=== PATIENT | female | born 1960 | race Caucasian/White ===

== ENCOUNTER → 2018-04-04 | Outpatient (CLI) | payer OTHER ==
[~2018-04-04] MED LIST: AMIT100T53 PO; ARIP2TAB9 PO; ASP325 PO; ASPI81TA94 PO; BIS5 PO; BUTA1TAB PO; DESV50TA9 PO; DEXT1CAP3 PO; FAMO10TA89 PO; GEMF600T91 PO; LISI-362 PO; LISI20TA29 PO; LOR5 PO; ONDA4TAB PO; PRE20 PO; SER50 PO; SIMV-42 PO; TRAM100T22 PO; ZOL5 PO
--- NOTE | 2018-04-04 13:17 | RADIOLOGY IMAGING REPORT ---
FACILITY: PATIENT NAME: HARINDER POWER : [id number] MR: [id number] V: [id number] EXAM DATE: [id number] ORDERING PHYSICIAN: SANA PRATT TECHNOLOGIST: Codi Howe PROCEDURE:BILATERAL DIGITAL SCREENING MAMMOGRAM WITH CAD ASSISTED INTERPRETATION & 3D TOMOSYNTHESIS COMPARISON:02/16/17 & priors back to 11/28/2011 INDICATIONS:SCREENING FINDINGS: Breast parenchyma is mostly fatty replaced. There are no mammographic findings concerning for malignancy. There is no significant interval change. DIAGNOSTIC CATEGORY 1--NEGATIVE. RECOMMENDATIONS: ROUTINE MAMMOGRAM AND CLINICAL EVALUATION. IMPRESSION: BIRADS 1: Negative. Dictated by: Danny Pierre on 04/04/2018 at 12:08 Transcribed by: SARAY on 04/04/2018 at 12:59 Approved by: Danny Pierre on 04/04/2018 at 13:16 [facility]
== END ==
LOC: MAMO 00:29
PROVIDERS: ATTEND Family Medicine
DX: Z12.31 Encounter for screening mammogram for malignant neoplasm of breast (principal)
CPT/HCPCS: 77063; 77067

== ENCOUNTER → 2018-06-27 | Outpatient (CLI) | payer OTHER | LOC: US 11:07 | PROVIDERS: ATTEND Family Medicine | DX: R01.1 Cardiac murmur, unspecified (principal) | CPT/HCPCS: 93306 ==

== ENCOUNTER 2019-02-20 18:13 | Emergency (ER) | payer OTHER ==
--- NOTE | 2019-02-20 18:37 | ER Report ---
History and Physical Time Seen By MD: 18:36 HPI/ROS CHIEF COMPLAINT: chest pain HISTORY OF PRESENT ILLNESS: This is a 58 year old female. Having pain localized to a small spot in left upper chest for about a month. Rated a 1 on a 1-10 scale. Worsens with exertion and deep breaths. No change with eating. Having some increased heartburn symptoms during that same time period, unrelieved with TUMs. No fevers or cough. Has history of aortic valve problems, seen by vascular clinic in [place]. No abdominal pain, nausea or vomiting. No injuries or overuse. No rash associated with this. Allergies: Coded Allergies: No Known Allergies (Verified Allergy, Mild, 02/20/19) Home Meds Reported Medications Lisinopril (LISINOPRIL) 20 Mg Tablet, 20 MG PO QDAY, TAB 10/14/14 Dextromethorphan Hbr/Quinidine (NUEDEXTA 20-10 MG CAPSULE) 1 Each Capsule, 1 EACH PO DAILY, CAPSULE 10/14/14 Amitriptyline Hcl (AMITRIPTYLINE HCL) 100 Mg Tablet, 100 MG PO QHS, TAB 10/14/14 Aspirin (ASPIRIN) 81 Mg Tab.chew, 81 MG PO QDAY, TAB.CHEW TAKE 1 TABLET BY MOUTH EVERY DAY 10/14/14 Zolpidem Tartrate (Ambien) 5 Mg Tab, 5 MG PO QHS, 0 Refills 09/12/11 Simvastatin (Zocor) 20 Mg Tablet, 20 MG PO QHS, 0 Refills 09/12/11 Gemfibrozil (Gemfibrozil) 600 Mg Tablet, 600 MG PO, 0 Refills 09/12/11 Reviewed Nurses Notes: Yes Hx Smoking: No Hx Substance Use Disorder: No Hx Alcohol Use: Yes (3-4 BEERS ON FRIDAYS) Constitutional Vital Sign - Last 24 Hours 02/20/19 02/20/19 02/20/19 02/20/19 18:27 18:30 18:45 18:49 Temp 97.8 Pulse 101 95 96 Resp 17 14 12 B/P (MAP) 178/81 (113) 178/81 Pulse Ox 87 88 88 O2 Delivery Room Air 02/20/19 02/20/19 02/20/19 02/20/19 19:00 19:06 19:15 19:30 Pulse 98 98 94 Resp 10 23 12 B/P (MAP) 159/94 (115) Pulse Ox 90 88 89 02/20/19 02/20/19 02/20/19 02/20/19 19:45 20:00 20:30 20:45 Pulse 95 95 90 92 Resp 19 9 24 6 Pulse Ox 88 88 88 89 02/20/19 02/20/19 21:00 21:07 Pulse 95 Resp 26 B/P (MAP) 132/77 (95) Pulse Ox 88 Physical Exam General Appearance: The patient is alert. No acute distress. Eyes: Pupils are equal, round. No pallor, injection or icterus. ENT: Mucous membranes are moist. Normal oral mucosa. Posterior oropharynx is normal. Neck: Supple and non tender. No lymphadenopathy. Respiratory: Lungs are clear to auscultation. Cardiovascular: Regular rate and rhythm. No murmurs, gallops or rubs. Normal capillary refill. No edema. Gastrointestinal: Abdomen is soft and non tender. Nondistended. Neurological: Alert and oriented x3. Skin: Warm and dry. No rashes. Musculoskeletal: Not reproducible with palpation. No tenderness in back or spine. DIFFERENTIAL DIAGNOSIS: After history and physical exam, differential diagnosis was considered for chest pain including but not limited to myocardial ischemia, pericarditis pulmonary embolus, chest wall pain, pleural inflammation and pulmonary infectious causes. Medical Decision Making Data Points Result Diagram: 02/20/19184002/20/19 1841 Laboratory Hematology Test 02/20/19 18:41 Red Blood Count 4.75 M/uL (4.17-5.56) Mean Corpuscular Volume 90.5 fL (80.0-96.0) Mean Corpuscular Hemoglobin 31.2 pg (26.0-33.0) Mean Corpuscular Hemoglobin Concent 34.4 g/dL (32.0-36.0) Red Cell Distribution Width 13.1 % (11.5-14.5) Mean Platelet Volume 7.9 fL (7.2-11.1) Neutrophils (%) (Auto) 49.6 % (39.4-72.5) Lymphocytes (%) (Auto) 41.1 % (17.6-49.6) Monocytes (%) (Auto) 5.0 % (4.1-12.4) Eosinophils (%) (Auto) 3.4 % (0.4-6.7) Basophils (%) (Auto) 0.9 % (0.3-1.4) Nucleated RBC Relative Count (auto) 0.1 /100WBC Neutrophils # (Auto) 3.4 K/uL (2.0-7.4) Lymphocytes # (Auto) 2.8 K/uL (1.3-3.6) Monocytes # (Auto) 0.3 K/uL (0.3-1.0) Eosinophils # (Auto) 0.2 K/uL (0.0-0.5) Basophils # (Auto) 0.1 K/uL (0.0-0.1) Nucleated RBC Absolute Count (auto) 0.01 K/uL D-Dimer Quantitative (PE/DVT) < 0.27 ug/ml (0-0.50) Sodium Level 139 mmol/L (137-145) Potassium Level 3.7 mmol/L (3.5-5.0) Chloride Level 102 mmol/L (98-107) Carbon Dioxide Level 26 mmol/L (22-31) Blood Urea Nitrogen 16 mg/dl (7-18) Creatinine 0.70 mg/dl (0.52-1.04) Glomerular Filtration Rate Calc > 60.0 Random Glucose 103 mg/dl (75-110) Calcium Level 9.6 mg/dl (8.4-10.2) Total Bilirubin 0.4 mg/dl (0.2-1.3) Aspartate Amino Transf (AST/SGOT) 32 U/L (0-35) Alanine Aminotransferase (ALT/SGPT) 43 U/L (0-56) Alkaline Phosphatase 68 U/L (0-126) Troponin I < 0.012 ng/ml B-Type Natriuretic Peptide 12 pg/ml (0-100) Total Protein 8.2 g/dl (6.3-8.2) Albumin 5.1 g/dl (3.5-5.0) Chemistry Test 02/20/19 18:41 White Blood Count 6.8 k/uL (4.5-11.0) Red Blood Count 4.75 M/uL (4.17-5.56) Hemoglobin 14.8 g/dL (12.0-16.0) Hematocrit 43.0 % (34.0-47.0) Mean Corpuscular Volume 90.5 fL (80.0-96.0) Mean Corpuscular Hemoglobin 31.2 pg (26.0-33.0) Mean Corpuscular Hemoglobin Concent 34.4 g/dL (32.0-36.0) Red Cell Distribution Width 13.1 % (11.5-14.5) Platelet Count 242 K/uL (150-450) Mean Platelet Volume 7.9 fL (7.2-11.1) Neutrophils (%) (Auto) 49.6 % (39.4-72.5) Lymphocytes (%) (Auto) 41.1 % (17.6-49.6) Monocytes (%) (Auto) 5.0 % (4.1-12.4) Eosinophils (%) (Auto) 3.4 % (0.4-6.7) Basophils (%) (Auto) 0.9 % (0.3-1.4) Nucleated RBC Relative Count (auto) 0.1 /100WBC Neutrophils # (Auto) 3.4 K/uL (2.0-7.4) Lymphocytes # (Auto) 2.8 K/uL (1.3-3.6) Monocytes # (Auto) 0.3 K/uL (0.3-1.0) Eosinophils # (Auto) 0.2 K/uL (0.0-0.5) Basophils # (Auto) 0.1 K/uL (0.0-0.1) Nucleated RBC Absolute Count (auto) 0.01 K/uL D-Dimer Quantitative (PE/DVT) < 0.27 ug/ml (0-0.50) Glomerular Filtration Rate Calc > 60.0 Calcium Level 9.6 mg/dl (8.4-10.2) Total Bilirubin 0.4 mg/dl (0.2-1.3) Aspartate Amino Transf (AST/SGOT) 32 U/L (0-35) Alanine Aminotransferase (ALT/SGPT) 43 U/L (0-56) Alkaline Phosphatase 68 U/L (0-126) Troponin I < 0.012 ng/ml B-Type Natriuretic Peptide 12 pg/ml (0-100) Total Protein 8.2 g/dl (6.3-8.2) Albumin 5.1 g/dl (3.5-5.0) Coagulation Test 02/20/19 18:41 D-Dimer Quantitative (PE/DVT) < 0.27 ug/ml EKG/Imaging EKG Interpretation 12 lead EKG: Rhythm: Normal sinus rhythm, rate 97 [place]: normal QRS: normal ST segments: normal Imaging EXAMINATION: Chest 2 Views HISTORY: Chest pain. COMPARISON: None. FINDINGS: The lungs are clear. No focal consolidation or pleural fluid. No pneumothorax. Normal cardiomediastinal silhouette, with normal heart size and pulmonary vascularity. No acute osseous findings. Mild thoracolumbar scoliosis with multilevel degenerative changes along the spine. IMPRESSION: No evidence of acute cardiopulmonary disease. Report Dictated By: Qasim Begum MD at 02/20/2019 8:33 PM ED Course/Re-evaluation Clinical Indication for ER IV: IV Access ED Course EKG, imaging, and labs are negative. Reviewed these with the patient. Recomm ended starting Zantac or Pepcid as a trial to see if GI related. Follow-up with PCP recommended to consider further workup. Decision to Disposition Date: Feb 20, 2019 Decision to Disposition Time: 20:59 Depart Departure Latest Vital Signs Vital Signs Date Time Temp Pulse Resp B/P (MAP) Pulse Ox O2 Delivery O2 Flow Rate FiO2 02/20/19 21:07 132/77 (95) 02/20/19 21:00 95 26 88 02/20/19 18:49 97.8 Room Air Impression: Primary Impression: Chest pain Condition: Improved Disposition: HOME OR SELF-CARE Referrals: SANA PRATT MD (PCP) Patient Instructions: Chest Pain (ED) Additional Instructions: We did not find a dangerous cause of chest pain tonight on your evaluation. This could be related to the increase in heartburn you are having. Try taking Zantac or Pepcid twice a day. Follow-up with your primary care provider for further evaluation. Problem Qualifiers Primary Impression: Chest pain Chest pain type: unspecified Qualified Codes: R07.9 - Chest pain, unspecified EMMA BULL MD Feb 20, 2019 18:37
[2019-02-20] MEDS ORDERED: ASPIRIN 81 MG CHEW PO ONE (18:50)
--- NOTE | 2019-02-20 18:54 | EKG ---
FACILITY: [facility] - [place] PATIENT NAME: HARINDER POWER : [id number] MR: [id number] V: [id number] EXAM DATE: ORDERING PHYSICIAN: EMMA BULL TECHNOLOGIST: LIANG Test Reason : CP Blood Pressure : / mmHG Vent. Rate : 097 BPM Atrial Rate : 097 BPM P-R Int : 122 ms QRS Dur : 110 ms QT Int : 382 ms P-R-T Axes : 051 053 051 degrees QTc Int : 485 ms Normal sinus rhythm Normal ECG No previous ECGs available Confirmed by Alok Chacko ([id number]) on 02/20/2019 10:12:08 PM Referred By: Confirmed By:Alok Romano
[2019-02-20 19:01] LABS: PLATELET COUNT, AUTOMATED 242 K/uL (150-450)
--- NOTE | 2019-02-20 20:39 | RADIOLOGY IMAGING REPORT ---
FACILITY: [facility] - [place] PATIENT NAME: Elisa Dodson : 1960 MR: [id number] V: [id number] EXAM DATE: ORDERING PHYSICIAN: EMMA BULL TECHNOLOGIST: Location: [facility] - [place] Patient: Elisa Dodson : 1960 Visit/Account:[id number] Date of Sevice: 02/20/2019 EXAMINATION: Chest 2 Views HISTORY: Chest pain. COMPARISON: None. FINDINGS: The lungs are clear. No focal consolidation or pleural fluid. No pneumothorax. Normal cardiomediastinal silhouette, with normal heart size and pulmonary vascularity. No acute osseous findings. Mild thoracolumbar scoliosis with multilevel degenerative changes along th e spine. IMPRESSION: No evidence of acute cardiopulmonary disease. Report Dictated By: Qasim Begum MD at 02/20/2019 8:33 PM Report E-Signed By: Qasim Begum MD at 02/20/2019 8:35 PM WSN:[id number]
[2019-02-20 21:07] VITALS: BP 132/77
== END 2019-02-20 21:10 | disposition home or self-care (01) ==
LOC: ER 18:37
DX: R07.9 Chest pain, unspecified (principal)
CPT/HCPCS: 71046; 82040; 82247; 82310; 82374; 82435; 82565; 82947; 83880; 84075; 84132; 84155; 84295; 84450; 84460; 84484; 84520; 85025; 85379; 93005; 99284

== ENCOUNTER → 2019-07-05 | Outpatient (CLI) | payer OTHER ==
--- NOTE | 2019-07-05 16:32 | RADIOLOGY IMAGING REPORT ---
FACILITY: [facility] - [place] PATIENT NAME: HARINDER POWER : [id number] MR: [id number] V: [id number] EXAM DATE: [id number] ORDERING PHYSICIAN: SANA PRATT TECHNOLOGIST: Kiera Rodriguez PROCEDURE: BILATERAL DIGITAL SCREENING MAMMOGRAM WITH CAD ASSISTED INTERPRETATION & 3D TOMOSYNTHESIS REASON FOR STUDY: Screening. COMPARISON: 04/04/18 with priors to 11/30/12. VIEWS OBTAINED: Bilateral 2D & 3D full field CC & MLO projections. BREAST DENSITY: The breast parenchymal density is almost completely fatty replaced. MAMMOGRAM FINDINGS: There is a stable small benign appearing mass in the lower outer quadrant of the Left breast at middle depth. No mammographic findings concerning for malignancy. No significant interval change. IMPRESSION: BIRADS 2: Benign finding. DIAGNOSTIC CATEGORY 2--BENIGN FINDING. RECOMMENDATIONS: ROUTINE MAMMOGRAM IN 1YR AND CLINICAL EVALUATION. Dictated by: Danny Pierre on 07/05/2019 at 16:15 Transcribed by: GA on 07/05/2019 at 16:21 Approved by: Danny Pierre on 07/05/2019 at 16:26 [facility]
== END ==
LOC: MAMO 03:50
PROVIDERS: ATTEND Family Medicine
DX: Z12.31 Encounter for screening mammogram for malignant neoplasm of breast (principal)
CPT/HCPCS: 77063; 77067